=== PATIENT | female | born 1985 | race Caucasian/White ===

== ENCOUNTER 2018-05-25 23:33 | Observation (INO) | payer OTHER ==
[~2018-05-25] VITALS: Ht 160 cm; Wt 79.8 kg
[~2018-05-25 23:33] MED LIST: CALC-1015; PREN-169
[2018-05-26] MEDS ORDERED: BUSCAPINA PO (00:07)
[2018-05-26] MEDS ORDERED: [UNRECOGNIZED DRUG - OTHER] PO (00:10)
[2018-05-26 00:30] VITALS: BP 105/64
== END 2018-05-26 00:50 | disposition home or self-care (01) ==
LOC: 4S 23:33
PROVIDERS: ADMIT Obstetrics & Gynecology; ATTEND Obstetrics & Gynecology
DX: O62.9 Abnormality of forces of labor, unspecified (principal); Z3A.35 35 weeks gestation of pregnancy
CPT/HCPCS: 59025; G0378

== ENCOUNTER 2018-05-29 22:21 | Observation (INO) | payer OTHER ==
[~2018-05-29] VITALS: Ht 160 cm; Wt 78.9 kg
[~2018-05-29 22:21] MED LIST changes: +BUSCAPINA PO; +[UNRECOGNIZED DRUG - OTHER] PO
[2018-05-29 23:08] VITALS: BP 112/58
[2018-05-30] MEDS ORDERED: RINGERS SOLUTION,LACTATED 1,000 ML IV ONE (00:45)
== END 2018-05-30 04:20 | disposition home or self-care (01) ==
LOC: 4S 22:21
PROVIDERS: ADMIT Obstetrics & Gynecology; ATTEND Obstetrics & Gynecology
DX: O62.9 Abnormality of forces of labor, unspecified (principal); Z3A.35 35 weeks gestation of pregnancy
CPT/HCPCS: G0378 ×2; J7120; 96360; 96361

== ENCOUNTER 2018-06-16 15:44 | Inpatient (IN) | payer OTHER ==
[~2018-06-16] VITALS: Ht 160 cm; Wt 79.4 kg
[2018-06-16 16:31] VITALS: BP 109/64
[2018-06-16] MEDS ORDERED: OXYTOCIN 30 UNITS/LACT RINGERS 500 ML IV ONE (20:03)
[2018-06-16] MEDS ORDERED: RINGERS SOLUTION,LACTATED 1,000 ML IV SCH (20:03)
[2018-06-16] MEDS ORDERED: RINGERS SOLUTION,LACTATED 1,000 ML IV PRN (20:03)
[2018-06-16] MEDS ORDERED: RINGERS SOLUTION,LACTATED 1,000 ML IV ONE (20:12)
[2018-06-16] MEDS ORDERED: LIDOCAINE/PF 1% 30 ML VIAL INJ PRN (20:15)
[2018-06-16] MEDS ORDERED: TERBUTALINE SULFATE 1 MG/ML VIAL SQ PRN (20:15)
[2018-06-16] MEDS ORDERED: CITRIC ACID/SODIUM CITRATE 30 ML SOLUTION UDCUP PO PRN (20:15)
[2018-06-16] MEDS ORDERED: METOCLOPRAMIDE HCL 5 MG/ML 2 ML VIAL IVP PRN (20:15)
[2018-06-16] MEDS ORDERED: OXYGEN THERAPY IH SCH (20:15)
[2018-06-16] MEDS ORDERED: METHYLERGONOVINE MALEATE 0.2 MG/ML VIAL IM PRN (20:15)
[2018-06-16] MEDS ORDERED: FentaNYL CITRATE-PF 100 MCG/2 ML VIAL IVP PRN (20:15)
[2018-06-16 20:34] LABS: BASOPHILS % (AUTO) 0.7 % (0.0-2.0); EOSINOPHILS % (AUTO) 0.7 % (1.0-6.0); HEMATOCRIT 33.6 % (36-46); HEMOGLOBIN 11.8 g/dL (12.0-16.0); LYMPHOCYTES # (AUTO) 2.1 K/uL (1.0-4.8); LYMPHOCYTES % (AUTO) 24.2 % (22.0-44.0); MEAN CORPUSCULAR VOLUME 97 fL (80-100); MONOCYTES # (AUTO) 0.8 K/uL (0.1-1.0); NEUTROPHILS # (AUTO) 5.5 K/uL (1.8-7.7); NEUTROPHILS % (AUTO) 64.4 % (40.0-70.0); PLATELET COUNT (AUTO)-OB 290 K/uL (150-450); RED BLOOD CELL COUNT(AUTO) 3.46 MIL/uL (4.00-5.20); RED CELL DISTRIBUTION WIDTH 14.8 % (11.5-14.5)
[2018-06-16 20:55] VITALS: BP 109/71
[2018-06-16] MEDS ORDERED: ROPIVACAINE HCL/PF 0.2% 100 ML ED ONE (21:16)
[2018-06-17] MEDS ORDERED: OXYTOCIN 30 UNITS/LACT RINGERS 500 ML IV ONE (02:34)
[2018-06-17] MEDS ORDERED: IBUPROFEN 800 MG TABLET PO PRN (02:45)
[2018-06-17] MEDS ORDERED: LIDOCAINE/PF 1% 30 ML VIAL INJ PRN (02:45)
[2018-06-17] MEDS ORDERED: OxyCODONE HCL/ACETAMINOPHEN 5-325 MG TABLET PO PRN ×2 (02:45)
[2018-06-17] MEDS ORDERED: LANOLIN 7 GM OINTMENT TP PRN (02:45)
[2018-06-17] MEDS ORDERED: GLYCERIN/WITCH HAZEL LEAF 40 PADS JAR TP PRN (02:45)
[2018-06-17] MEDS ORDERED: BENZOCAINE 20%/MENTHOL 56 GM SPRAY CANISTER TP PRN (02:45)
[2018-06-17] MEDS: MAGNESIUM HYDROXIDE SUSPENSION 30 ML UDCUP PO PRN ×2 (08:12→21:29)
[2018-06-18 06:16] LABS: BASOPHILS % (AUTO) 0.3 % (0.0-2.0); EOSINOPHILS % (AUTO) 0.9 % (1.0-6.0); HEMATOCRIT 31.1 % (36-46); HEMOGLOBIN 10.9 g/dL (12.0-16.0); LYMPHOCYTES # (AUTO) 2.3 K/uL (1.0-4.8); LYMPHOCYTES % (AUTO) 22.8 % (22.0-44.0); MEAN CORPUSCULAR HEMOGLOBIN 33.9 pg (26.0-34.0); MEAN CORPUSCULAR HGB CONC 35.1 G/dL (31.0-37.0); MEAN CORPUSCULAR VOLUME 97 fL (80-100); MONOCYTES # (AUTO) 0.7 K/uL (0.1-1.0); MONOCYTES % (AUTO) 7.1 % (2.0-9.0); NEUTROPHILS # (AUTO) 6.9 K/uL (1.8-7.7); NEUTROPHILS % (AUTO) 68.9 % (40.0-70.0); PLATELET COUNT (AUTO)-OB 247 K/uL (150-450); RED BLOOD CELL COUNT(AUTO) 3.22 MIL/uL (4.00-5.20); RED CELL DISTRIBUTION WIDTH 14.6 % (11.5-14.5)
[2018-06-18] MEDS: MAGNESIUM HYDROXIDE SUSPENSION 30 ML UDCUP PO PRN (09:08)
[2018-06-18] MEDS ORDERED: IBUP-2071 PO (09:51)
[2018-06-18] MEDS ORDERED: DSS100 PO (09:52)
[2018-06-18] MEDS ORDERED: DOCU250C91 PO (09:52)
[2018-06-18] MEDS ORDERED: FERR-89 PO (09:54)
== END 2018-06-18 11:45 | disposition home or self-care (01) | DRG 775 ==
LOC: OBSVTOIN 15:44 → 4S 15:44
PROVIDERS: ADMIT Obstetrics & Gynecology; ATTEND Obstetrics & Gynecology
PROC: 10E0XZZ Delivery of Products of Conception, External Approach (ICD-10-PCS; principal; 2018-06-17)
PROC: 0KQM0ZZ Repair Perineum Muscle, Open Approach (ICD-10-PCS; 2018-06-17)
PROC: 3E0R3BZ Introduction of Anesthetic Agent into Spinal Canal, Percutaneous Approach (ICD-10-PCS; 2018-06-17)
PROC: 00HU33Z Insertion of Infusion Device into Spinal Canal, Percutaneous Approach (ICD-10-PCS; 2018-06-17)
DX: O70.1 Second degree perineal laceration during delivery (principal); Z37.0 Single live birth; O69.81X0 Labor and delivery complicated by cord around neck, without compression, not applicable or unspecified; Z3A.38 38 weeks gestation of pregnancy; Z88.0 Allergy status to penicillin
CPT/HCPCS: 59409; 86850; 86900; 86901; J2590; J2795; J7120

== ENCOUNTER 2019-05-19 15:30 | Observation (INO) | payer OTHER ==
[~2019-05-19] VITALS: Ht 160 cm; Wt 80.7 kg
[~2019-05-19 15:30] MED LIST changes: -BUSCAPINA PO; +DSS100 PO; +FERR-89 PO; +IBUP-2071 PO; -PREN-169; +PRENATAL ONE T1 EACH; -[UNRECOGNIZED DRUG - OTHER] PO
[2019-05-19 16:26] VITALS: BP 100/63
== END 2019-05-19 17:35 | disposition home or self-care (01) ==
LOC: 4S 15:30
PROVIDERS: ADMIT Obstetrics & Gynecology; ATTEND Obstetrics & Gynecology
DX: O46.93 Antepartum hemorrhage, unspecified, third trimester (principal); Z3A.31 31 weeks gestation of pregnancy
CPT/HCPCS: 81002; G0378

== ENCOUNTER 2019-05-19 18:02 | Inpatient (IN) | payer OTHER ==
[~2019-05-19] VITALS: Ht 160 cm; Wt 78.0 kg
[~2019-05-19 18:02] MED LIST changes: -CALC-1015; -DSS100 PO; -FERR-89 PO; -IBUP-2071 PO
[2019-07-11] MEDS ORDERED: RINGERS SOLUTION,LACTATED 1,000 ML IV PRN (12:02)
[2019-07-11] MEDS ORDERED: RINGERS SOLUTION,LACTATED 1,000 ML IV SCH (12:02)
[2019-07-11] MEDS ORDERED: OXYTOCIN 30 UNITS/LACT RINGERS 500 ML IV ONE (12:02)
[2019-07-11] MEDS ORDERED: OXYTOCIN 30 UNITS/LACT RINGERS 500 ML IV PRN (12:02)
[2019-07-11] MEDS ORDERED: FentaNYL CITRATE-PF 100 MCG/2 ML VIAL IVP PRN (12:15)
[2019-07-11] MEDS ORDERED: CITRIC ACID/SODIUM CITRATE 30 ML SOLUTION UDCUP PO PRN (12:15)
[2019-07-11] MEDS ORDERED: LIDOCAINE/PF 1% 30 ML VIAL INJ PRN (12:15)
[2019-07-11] MEDS ORDERED: METOCLOPRAMIDE HCL 5 MG/ML 2 ML VIAL IVP PRN (12:15)
[2019-07-11] MEDS ORDERED: METHYLERGONOVINE MALEATE 0.2 MG/ML VIAL IM PRN (12:15)
[2019-07-11 12:19] VITALS: BP 108/63
[2019-07-11] MEDS ORDERED: FERR-89 PO (12:46)
[2019-07-11 12:51] LABS: BASOPHILS % (AUTO) 0.5 % (0.0-2.0); EOSINOPHILS % (AUTO) 0.4 % (1.0-6.0); HEMATOCRIT 31.9 % (36-46); HEMOGLOBIN 11.2 g/dL (12.0-16.0); LYMPHOCYTES # (AUTO) 1.3 K/uL (1.0-4.8); LYMPHOCYTES % (AUTO) 20.9 % (22.0-44.0); MEAN CORPUSCULAR HEMOGLOBIN 34.2 pg (26.0-34.0); MEAN CORPUSCULAR VOLUME 98 fL (80-100); MONOCYTES # (AUTO) 0.5 K/uL (0.1-1.0); MONOCYTES % (AUTO) 7.5 % (2.0-9.0); NEUTROPHILS # (AUTO) 4.5 K/uL (1.8-7.7); NEUTROPHILS % (AUTO) 70.7 % (40.0-70.0); PLATELET COUNT (AUTO)-OB 264 K/uL (150-450); RED BLOOD CELL COUNT(AUTO) 3.27 MIL/uL (4.00-5.20); RED CELL DISTRIBUTION WIDTH 14.1 % (11.5-14.5)
[2019-07-11] MEDS ORDERED: INFLUENZA VIRUS VACCINE QVS 2019-20 (3YR+)/PF 60 MCG/0.5 ML SYRINGE IM ONE (13:00)
[2019-07-11] MEDS ORDERED: TERBUTALINE SULFATE 1 MG/ML VIAL SQ ONE (13:20)
[2019-07-11] MEDS ORDERED: TERBUTALINE SULFATE 1 MG/ML VIAL ONE (13:22)
[2019-07-11] MEDS ORDERED: ROPIVACAINE HCL/PF 0.2% 100 ML ED ONE (13:27)
[2019-07-11] MEDS ORDERED: ROPIVACAINE HCL/PF 0.2% 100 ML ED PRN (13:46)
[2019-07-11] MEDS ORDERED: PREN-217 PO (13:49)
[2019-07-11] MEDS ORDERED: NALBUPHINE HCL 10 MG/ML VIAL IVP PRN (14:00)
[2019-07-11] MEDS ORDERED: DiphenhydrAMINE HCL 50 MG/ML VIAL IVP PRN (14:00)
[2019-07-11] MEDS ORDERED: ONDANSETRON HCL 4 MG/2 ML VIAL IVP PRN (14:00)
[2019-07-11] MEDS ORDERED: OXYGEN THERAPY IH SCH (20:00)
[2019-07-11] MEDS ORDERED: GLYCERIN/WITCH HAZEL LEAF 40 PADS JAR TP PRN (21:15)
[2019-07-11] MEDS ORDERED: ACETAMINOPHEN/CODEINE 300-30 MG TABLET PO PRN ×2 (21:15)
[2019-07-11] MEDS ORDERED: LANOLIN 7 GM OINTMENT TP PRN (21:15)
[2019-07-11] MEDS ORDERED: BENZOCAINE 20%/MENTHOL 56 GM SPRAY CANISTER TP PRN (21:15)
[2019-07-11] MEDS: IBUPROFEN 800 MG TABLET PO SCH (22:27)
[2019-07-12] MEDS: IBUPROFEN 800 MG TABLET PO SCH ×3 (06:11→20:04)
[2019-07-12] MEDS: MAGNESIUM HYDROXIDE SUSPENSION 30 ML UDCUP PO SCH ×2 (09:24→20:57)
[2019-07-13] MEDS: IBUPROFEN 800 MG TABLET PO SCH ×2 (02:17→08:32)
== END 2019-07-13 11:00 | disposition home or self-care (01) | DRG 807 ==
LOC: 4S 07-11 10:50 → OBSVTOIN 07-11 10:50
PROVIDERS: ADMIT Obstetrics & Gynecology; ATTEND Obstetrics & Gynecology
PROC: 10E0XZZ Delivery of Products of Conception, External Approach (ICD-10-PCS; principal; 2019-07-11)
PROC: 0HQ9XZZ Repair Perineum Skin, External Approach (ICD-10-PCS; 2019-07-11)
PROC: 3E0R3BZ Introduction of Anesthetic Agent into Spinal Canal, Percutaneous Approach (ICD-10-PCS; 2019-07-11)
PROC: 00HU33Z Insertion of Infusion Device into Spinal Canal, Percutaneous Approach (ICD-10-PCS; 2019-07-11)
DX: O70.0 First degree perineal laceration during delivery (principal); Z37.0 Single live birth; Z3A.38 38 weeks gestation of pregnancy
CPT/HCPCS: 86850; 86900; 86901; 90686; J2590; J2795; J3105; J3490; J7120